=== PATIENT | male | born 1945 | race Caucasian/White ===

== ENCOUNTER 2024-03-04 09:26 | Emergency (ER) | payer MEDICARE, SELFPAY ==
[2024-03-04 09:30] VITALS: BP 160/78; PULSE 61; RESP 15; TEMP 36.6; O2SAT 95
[2024-03-04 09:38] VITALS: BP 160/78; PULSE 61; RESP 15; TEMP 36.6; O2SAT 95
--- NOTE | 2024-03-04 10:06 | ED.GENADUL_ITS ---
Discharge Plan Disposition Patient Disposition: Home Condition: Improving Discharge Details Clinical Impression: Diverticulitis Primary Care Provider: Unknown,Unknown ED Provider: Walter Richter Home Meds and New Rx's Prescriptions: New amoxicillin-pot clavulanate 875-125 mg tablet 1 tab PO BID 7 Days Qty: 14 0RF No Action amlodipine 5 mg tablet 5 mg PO DAILY diclofenac sodium 1 % gel 4 g topical QID Rx Instructions: apply to single knee, ankle, foot; for foot includes sole/toes/top of foot losartan 100 mg tablet 100 mg PO DAILY omeprazole 20 mg tablet,delayed release (DR/EC) 20 mg PO DAILY sildenafil 100 mg tablet 100 mg PO DAILY PRN Rx Instructions: administer 30 minutes to 4 hours before activity simvastatin 10 mg tablet 10 mg PO DAILY tamsulosin 0.4 mg capsule 0.4 mg PO DAILY ascorbic acid (vitamin C) 500 mg capsule 1,000 mg PO DAILY aspirin 81 mg capsule 81 mg PO DAILY ibuprofen [Advil] 200 mg tablet 200 mg PO ONCE omega [id number]-roc-fish oil [Fish Oil] 1,000 (120-180) mg capsule 1 cap PO DAILY multivitamin [Daily Multi-Vitamin] Tablet 1 tab PO DAILY Discharge Instructions Instructions: Diverticulitis Additional Instructions: Please follow-up with your primary care physician. Please return to the emergency department for any worsening symptoms HPI General Date/Time Provider Initiated Documentation: 03/04/24 09:42 . HPI Narrative: 79-year-old male history of diverticulitis presents with left lower abdominal discomfort over the last couple of days, denies urinary symptoms nausea or vomiting. History of appendectomy Related Data Home Medications ?Medication ?Instructions ?Recorded ?Confirmed amlodipine 5 mg tablet 5 mg PO DAILY 03/04/24 03/04/24 amoxicillin 875 mg-potassium 1 tab PO BID 7 days #14 tabs 03/04/24 clavulanate 125 mg tablet ascorbic acid (vitamin C) 500 mg 1,000 mg PO DAILY 03/04/24 03/04/24 capsule aspirin 81 mg capsule 81 mg PO DAILY 03/04/24 03/04/24 diclofenac sodium 1 % topical gel 4 g topical QID 03/04/24 03/04/24 ibuprofen 200 mg tablet (Advil) 200 mg PO ONCE 03/04/24 03/04/24 losartan 100 mg tablet 100 mg PO DAILY 03/04/24 03/04/24 multivitamin (Daily Multi-Vitamin 1 tab PO DAILY 03/04/24 03/04/24 tablet) omega [id number]-[id number]-[id number]-fish oil 1,000 mg 1 cap PO DAILY 03/04/24 03/04/24 (120 mg-180 mg) capsule (Fish Oil) omeprazole 20 mg tablet,delayed 20 mg PO DAILY 03/04/24 03/04/24 release sildenafil 100 mg tablet 100 mg PO DAILY PRN 03/04/24 03/04/24 simvastatin 10 mg tablet 10 mg PO DAILY 03/04/24 03/04/24 tamsulosin 0.4 mg capsule 0.4 mg PO DAILY 03/04/24 03/04/24 Previous Rx's ?Medication ?Instructions ?Recorded amoxicillin 875 mg-potassium 1 tab PO BID 7 days #14 tabs 03/04/24 clavulanate 125 mg tablet Allergies Allergy/AdvReac Type Severity Reaction Status Date / Time No Known Allergies Allergy Verified 03/04/24 09:34 General Stated Complaint: Abd Prob MAIKEL: 3 Exam Narrative Exam Narrative: Alert oriented interactive Moist mucous membranes tolerating secretions Normal voice no respiratory distress Abdomen soft nondistended, some involuntary guarding in the left lower quadrant Moving all extremities without deficit Normal mood and affect Course Vital Signs Vital signs: Vital Signs Temperature 36.6 C 03/04/24 09:30 Pulse 61 03/04/24 09:30 Respiratory Rate 15 03/04/24 09:30 Blood Pressure 160/78 H 03/04/24 09:30 Pulse Oximetry 95 03/04/24 09:30 Temperature 36.6 C 03/04/24 09:38 Temperature Source Oral 03/04/24 09:38 Pulse 61 03/04/24 09:38 Respiratory Rate 15 03/04/24 09:38 Respiratory Effort Normal, Non-Labored 03/04/24 09:35 Blood Pressure 160/78 H 03/04/24 09:38 Blood Pressure Position Sitting 03/04/24 09:38 Pulse Oximetry 95 03/04/24 09:38 Oxygen Delivery Method Room Air 03/04/24 09:38 Oxygen Flow Rate 0 03/04/24 09:38 Pain Level 2 03/04/24 09:38 Comment Pain is currently 2/10 per pt 03/04/24 09:38 Medical Decision Making 79-year-old male history of diverticulitis, prior appendectomy, presents with left lower quadrant abdominal discomfort, mild involuntary guarding on examination without distention, afebrile nontoxic afebrile hemodynamically stable hypertension likely related to discomfort. High clinical suspicion for recurrent diverticulitis versus colitis muscles consider component of abscess or phlegmon lower suspicion for perforation will obtain CT abdomen pelvis with contrast, lower suspicion for pyelonephritis or urinary tract infection however given some complaint of suprapubic discomfort will obtain urinalysis. Analgesia and likely antibiotics to be given 11: 51 patient resting comfortably no acute distress hemodynamically stable nonperitoneal. Evidence of diverticulitis without evidence of abscess phlegmon or perforation. Will start patient on Augmentin. Home care instructions and return precautions given Quality:SDOH Health Related Social Needs: No Data to Display [facility] All Active Problems (Updated 03/04/24 @ 11:52 by Walter Richter MD) Diverticulitis (Chronic) Social History Smoking/Tobacco Use Status: Never Smoking risk assessment performed?: Yes Alcohol Intake: current Alcohol Intake frequency: a few times a month Alcohol type: beer and other Drug use: Never Substance use type: does not use Housing: house Do you feel safe at home: Yes Do you feel safe in your relationship?: Yes
[2024-03-04] MEDS: ACETAMINOPHEN 1,000 MG/100 ML BAG 400 MG IVPB (10:32)
[2024-03-04] MEDS: Omnipaque 350 MG/ML 500 ML BTL-Imaging package IJ (10:48)
[2024-03-04 10:51] LABS: Albumin 3.6 g/dL (3.4-5.0); Alkaline Phosphatase 74 U/L (46-116); Anion Gap 8.2 mmol/L (3-11); BUN 16 mg/dL (7-18); Bilirubin, Total 1.25 mg/dL (0.2-1.0); CO2 27.8 mmol/L (21.0-32.0); Chloride 106 mmol/L (98-107); Estimated GFR 77.52 (mL/min/1.73m2); Glucose 109 mg/dL (74-106); Potassium 4.3 mmol/L (3.5-5.1); Sodium 142 mmol/L (136-145)
[2024-03-04 10:52] LABS: ALT 25 U/L (16-63); AST 25 U/L (15-37)
--- NOTE | 2024-03-04 10:57 | DI.CT_ITS ---
Exam(s) CT ABDOMEN PELVIS W EXAM: CT ABDOMEN PELVIS W z CLINICAL HISTORY: LLQ and subprapubic pain, hx diverticulitis. TECHNIQUE: Imaging Protocol: Axial computed tomography images with coronal and sagittal reformatted images were created and reviewed CONTRAST MATERIAL: Intravenous: Omnipaque-350 100cc Oral: None COMPARISON: No exams were available for comparison FINDINGS: VISUALIZED LUNG BASES: No nodules nor pleural effusions evident. ABDOMEN: There is no ascites. LIVER: There are no significant focal hepatic lesions evident. Small cyst or hemangioma measuring le ss than 1 cm incidentally noted in left lobe. There are no dilated intrahepatic ducts. GALLBLADDER/BILIARY: No obvious gallbladder pathology. CBD is not dilated. PANCREAS: No evidence of pancreatic mass nor dilatation of the pancreatic duct. SPLEEN: Spleen is not enlarged. No obvious intrasplenic lesions. Splenic and portal veins are paten t. ADRENALS: There are no significant adrenal masses. KIDNEYS:There are benign cysts noted in the kidneys. Largest of these is in the anterior cortex of t he left kidney and measures slightly over 1 cm. These do not require further workup. There are no s olid renal masses. No radiopaque calculi in the kidneys. However, there is minimal dilatation of th e upper ureters. There are no radiopaque calculi in the urinary tracts nor within the urinary bladde r.. ABDOMINAL AORTA: Abdominal aorta is not enlarged. LYMPH NODES:There is no retroperitoneal nor paraaortic adenopathy. ABDOMINAL WALL: Small fat containing umbilical hernia. No bowel loops therein. No significant ingui nal hernias. GI: No evidence of small-bowel obstruction. PELVIS: GI: No evidence of appendicitis.There is extensive sigmoid diverticulosis. There is some mild streak ing around the upper sigmoid consistent with an element of acute diverticulitis. No obvious free air . No abscess evident LYMPH NODES: There is no intrapelvic nor inguinal adenopathy. REPRODUCTIVE: Prostate size normal. Seminal vesicles unremarkable. URINARY BLADDER: No calculi nor obvious masses evident. No gas in the urinary bladder. OSSEOUS: No fractures and no significant osseous lesions. IMPRESSION: 1. Extensive sigmoid diverticulosis and there is evidence of acute diverticulitis in the upper sigmoi d. No evidence of abscess this time. Report called by myself to ER physician 03/04/2024 at 11:14 a.m. RADIATION DOSE DELIVERED: 379.59mGy.cm Total DLP DATA REPOSITORY: All CT scans at this facility are submitted to the National Radiology Data Registry (NRDR) Dose Index Registry (DIR) with the [employer] ([employer]). RADIATION OPTIMIZATION: All CT scans at this facility use at least one of these dose optimization te chniques: automated exposure control; mA and/or kV adjustment per patient size (includes targeted exa ms where dose is matched to clinical indication); or iterative reconstruction.
[2024-03-04 10:58] LABS: Bilirubin Negative (Negative); Blood Negative (Negative); Clarity Clear (Clear); Glucose Negative (Negative); Ketones Trace mg/dL (Negative); Leukocyte Esterase Negative (Negative); Nitrite Negative (Negative); Specific Gravity 1.015 (1.005-1.025); Urobilinogen 0.2 mg/dL (Up to 0.2); pH 5.5 (5-8)
[2024-03-04 11:02] VITALS: BP 187/66; PULSE 49; PULSE 52; RESP 12; O2SAT 98
[2024-03-04 11:03] VITALS: PULSE 54; RESP 13; O2SAT 99
[2024-03-04] MEDS: Amoxicillin 875/Clav. 125 TAB PO (12:10)
[2024-03-04 13:34] LABS: Abs Immature Grans 0.02 10^3/uL (0.0-0.06); Absolute Basophil Count 0.03 10^3/uL (0.0-0.2); Absolute Eosinophil Count 0.14 10^3/uL (0.0-0.7); Absolute Lymphocyte Count 0.79 10^3/uL (1.2-3.4); Absolute Monocyte Count 0.66 10^3/uL (0.1-0.8); Absolute Neutrophil Count 4.85 10^3/uL (1.2-6.7); Basophils % 0.5 %; Eosinophils % 2.2 %; HCT 41.5 % (40.0-50.0); HGB 14.1 g/dL (13.5-17.5); Immature Grans % 0.3 %; Lymphocytes % 12.2 %; MCH 32.4 pg (27.0-33.0); MCV 95 fL (80-95); MPV 10.2 fL (8.0-11.0); Monocytes % 10.2 %; Neutrophils % 74.6 %; Platelet Count 157 10^3/uL (130-400); RBC 4.35 10^6/uL (4.36-5.78); RDW 11.7 % (11.8-14.1); RDW-SD 41.1 fL; WBC 6.49 10^3/uL (4.4-10.8)
== END 2024-03-04 12:11 | disposition home or self-care (01) ==
PROVIDERS: Emergency Provider Emergency Medicine
DX: K57.32 Diverticulitis of large intestine without perforation or abscess without bleeding (principal); Z79.82 Long term (current) use of aspirin
CPT/HCPCS: 80053; 96365; 99285; 74177; 81003; 85025; 99284; J0131